=== PATIENT | female | born 1950 | race African-American/Black ===

== ENCOUNTER → 2016-04-12 | Outpatient (CLI) | payer MEDICARE ==
[~2016-04-12] MED LIST: ALEVE220 MG PO; DIOVAN HCT 11 TABLE1 PO; LO-DOSE ASPIRIN81 M2 PO; ULTRAM50 MG PO; ZOCOR40 MG PO
== END | disposition home or self-care (01) ==
LOC: CDC 10:03
DX: Z01.810 Encounter for preprocedural cardiovascular examination (principal); R87.622 Low grade squamous intraepithelial lesion on cytologic smear of vagina (LGSIL); R87.810 Cervical high risk human papillomavirus (HPV) DNA test positive
CPT/HCPCS: 93000

== ENCOUNTER 2016-04-18 06:34 | Day surgery (SDC) | payer OTHER, MEDICARE ==
[~2016-04-18] VITALS: Ht 170.2 cm; Wt 95.2 kg
[2016-04-18 07:05] VITALS: BP 142/70
[2016-04-18 10:15] VITALS: BP 132/73
[2016-04-18 11:18] VITALS: BP 139/84
[2016-04-18 12:00] VITALS: BP 158/83
== END 2016-04-18 12:00 | disposition home or self-care (01) ==
LOC: SDC 06:34
PROC: 0UBC8ZZ Excision of Cervix, Via Natural or Artificial Opening Endoscopic (ICD-10-PCS; principal; 2016-04-18)
DX: N87.9 Dysplasia of cervix uteri, unspecified (principal); B97.7 Papillomavirus as the cause of diseases classified elsewhere; G47.33 Obstructive sleep apnea (adult) (pediatric); E66.9 Obesity, unspecified; Z68.32 Body mass index [BMI] 32.0-32.9, adult
CPT/HCPCS: 88305; 88307; J0131; J0690; J1100; J1885; J2250; J2405; J3010